=== PATIENT | male | born 1975 | race African-American/Black ===

== ENCOUNTER 2022-10-22 11:39 | Inpatient (IN) | payer OTHER ==
[2022-10-22 12:16] VITALS: BMI 23.6
[2022-10-22] MEDS ORDERED: NALOXONE HCL (KLOXXADO) 8 MG SPRAY NS PRN (15:58)
[2022-10-22] MEDS ORDERED: hydrOXYzine PAMOATE 25 MG CAPSULE (FP) PO PRN (15:58)
[2022-10-22] MEDS ORDERED: LOPERAMIDE HCL 2 MG CAPSULE PO PRN (15:58)
[2022-10-22] MEDS ORDERED: MAGNESIUM HYDROX 2400MG/30ML ORAL SUSPENSION 30 ML CUP PO PRN (15:58)
[2022-10-22] MEDS ORDERED: IBUPROFEN 400 MG TABLET (FP) PO PRN (15:58)
[2022-10-22] MEDS ORDERED: POLYETHYLENE GLYCOL (HEALTHYLAX) 3350 17 GM PACKET PO PRN (15:58)
[2022-10-22] MEDS ORDERED: MAG HYDROX/AL HYDROX/SIMETH 30 ML UNIT-DOSE CUP PO PRN (15:58)
[2022-10-22] MEDS ORDERED: BENZONATATE 200 MG CAPSULE PO PRN (15:58)
[2022-10-22] MEDS ORDERED: COLLOIDAL OATMEAL 1 BAR EACH TP PRN (15:58)
[2022-10-22] MEDS ORDERED: ACETAMINOPHEN 325 MG TABLET (FP) PO PRN (15:58)
[2022-10-22] MEDS ORDERED: BENZOCAINE/MENTHOL (CHLORASEPTIC ) LOZENGE MM PRN (15:58)
[2022-10-22] MEDS ORDERED: AMMONIUM LACTATE 12% LOTION 225 GM BOTTLE TP PRN (15:58)
[2022-10-22] MEDS ORDERED: guaiFENesin 600 MG TABLET.ER (FP) PO PRN (15:58)
[2022-10-22] MEDS ORDERED: IBUPROFEN 600 MG TABLET (FP) PO PRN (15:58)
[2022-10-22] MEDS ORDERED: NALOXONE HCL 0.4 MG/ML VIAL IM PRN (15:58)
[2022-10-22] MEDS ORDERED: TUBERCULIN PPD 5 TU/0.1ML SYRINGE (IN PATIENT USE ONLY) ID ONE (17:30)
[2022-10-22] MEDS ORDERED: TUBERCULIN PPD 5 TU/0.1ML VIAL ID ONE (17:42)
[2022-10-22] MEDS: THIAMINE HCL 100 MG TABLET (FP) PO SCH (21:37)
[2022-10-22] MEDS: MELATONIN 5 MG TABLETS PO SCH (21:37)
[2022-10-22 23:19] LABS: PH,URINE 7.5 (5.0-8.0); URINE APPEARANCE CLOUDY; URINE BILIRUBIN NEGATIVE (NEGATIVE); URINE COLOR YELLOW; URINE GLUCOSE (UA) NEGATIVE (NEGATIVE); URINE KETONE NEGATIVE (NEGATIVE); URINE LEUK ESTERASE NEGATIVE (NEGATIVE); URINE NITRITE NEGATIVE (NEGATIVE); URINE PROTEIN NEGATIVE (NEGATIVE); URINE UROBILINOGEN 0.2 mg/dL (0.2-1.0)
[2022-10-23] MEDS: PRENATAL VITAMINS W/ FOLIC ACID TABLET (FP) PO SCH (10:03)
[2022-10-23] MEDS: AMOX TR/POT CLAV 875MG/125MG TABLETS (FP) PO SCH (17:21)
[2022-10-23] MEDS: BICTEGRAV/EMTRICIT/TENOFOV (BIKTARVY) 50-200-25 MG TABLET PO SCH (17:59)
[2022-10-23] MEDS: THIAMINE HCL 100 MG TABLET (FP) PO SCH (21:22)
[2022-10-23] MEDS: MELATONIN 5 MG TABLETS PO SCH (21:22)
[2022-10-24 09:56] LABS: POTASSIUM 4.7 mmol/L (3.5-5.1)
[2022-10-24 10:02] LABS: HEMATOCRIT 31.6 % (35.4-49); HEMOGLOBIN 10.5 GM/dL (11.7-16.9); MCH 28.2 pg (25.7-33.7); MCHC 33.3 g/dl (32.0-35.9); MEAN CELL VOLUME 84.5 fl (80-96); MEAN PLT VOLUME 8.2 fl (7.5-11.1); PLATELET COUNT 305 10^3/uL (134-434); RBC 3.73 M/mm3 (4.00-5.60); RDW 18.7 % (11.9-15.9); WHITE BLOOD COUNT 4.6 K/mm3 (4.0-10.0)
[2022-10-24 10:06] LABS: CALCIUM 9.2 mg/dL (8.5-10.1)
[2022-10-24 10:07] LABS: BLOOD UREA NITROGEN 8.6 mg/dL (7-18)
[2022-10-24 10:10] LABS: CREATININE 0.9 mg/dL (0.55-1.3)
[2022-10-24 10:12] LABS: BILIRUBIN,TOTAL 0.4 mg/dL (0.2-1); TOT PROT 6.3 g/dl (6.4-8.2)
[2022-10-24] MEDS: PRENATAL VITAMINS W/ FOLIC ACID TABLET (FP) PO SCH (10:45)
[2022-10-24] MEDS: BICTEGRAV/EMTRICIT/TENOFOV (BIKTARVY) 50-200-25 MG TABLET PO SCH (10:45)
[2022-10-24] MEDS: AMOX TR/POT CLAV 875MG/125MG TABLETS (FP) PO SCH (10:45)
[2022-10-24] MEDS: THIAMINE HCL 100 MG TABLET (FP) PO SCH (22:08)
[2022-10-24] MEDS: MELATONIN 5 MG TABLETS PO SCH (22:08)
[2022-10-25] MEDS: BICTEGRAV/EMTRICIT/TENOFOV (BIKTARVY) 50-200-25 MG TABLET PO SCH (10:08)
[2022-10-25] MEDS: PRENATAL VITAMINS W/ FOLIC ACID TABLET (FP) PO SCH (10:08)
[2022-10-25] MEDS: AMOX TR/POT CLAV 875MG/125MG TABLETS (FP) PO SCH (10:08)
[2022-10-25] MEDS: MELATONIN 5 MG TABLETS PO SCH (21:40)
[2022-10-25] MEDS: THIAMINE HCL 100 MG TABLET (FP) PO SCH (21:40)
[2022-10-26] MEDS: BICTEGRAV/EMTRICIT/TENOFOV (BIKTARVY) 50-200-25 MG TABLET PO SCH (08:53)
[2022-10-26] MEDS: FERROUS SO4 325 MG TABLET (FP) PO SCH (10:01)
[2022-10-26] MEDS: PRENATAL VITAMINS W/ FOLIC ACID TABLET (FP) PO SCH (10:01)
[2022-10-26] MEDS: AMOX TR/POT CLAV 875MG/125MG TABLETS (FP) PO SCH (10:01)
[2022-10-26] MEDS: THIAMINE HCL 100 MG TABLET (FP) PO SCH (21:27)
[2022-10-26] MEDS: MELATONIN 5 MG TABLETS PO SCH (21:27)
[2022-10-27] MEDS: BICTEGRAV/EMTRICIT/TENOFOV (BIKTARVY) 50-200-25 MG TABLET PO SCH (07:05)
[2022-10-27] MEDS: AMOX TR/POT CLAV 875MG/125MG TABLETS (FP) PO SCH (09:54)
[2022-10-27] MEDS: PRENATAL VITAMINS W/ FOLIC ACID TABLET (FP) PO SCH (09:54)
[2022-10-27] MEDS: FERROUS SO4 325 MG TABLET (FP) PO SCH (09:54)
[2022-10-27] MEDS: THIAMINE HCL 100 MG TABLET (FP) PO SCH (21:15)
[2022-10-27] MEDS: MELATONIN 5 MG TABLETS PO SCH (21:15)
[2022-10-28] MEDS: BICTEGRAV/EMTRICIT/TENOFOV (BIKTARVY) 50-200-25 MG TABLET PO SCH (07:03)
[2022-10-28] MEDS: AMOX TR/POT CLAV 875MG/125MG TABLETS (FP) PO SCH (10:24)
[2022-10-28] MEDS: FERROUS SO4 325 MG TABLET (FP) PO SCH (10:24)
[2022-10-28] MEDS: PRENATAL VITAMINS W/ FOLIC ACID TABLET (FP) PO SCH (10:24)
[2022-10-28] MEDS: MELATONIN 5 MG TABLETS PO SCH (21:26)
[2022-10-28] MEDS: THIAMINE HCL 100 MG TABLET (FP) PO SCH (21:26)
[2022-10-29] MEDS: BICTEGRAV/EMTRICIT/TENOFOV (BIKTARVY) 50-200-25 MG TABLET PO SCH (07:02)
[2022-10-29] MEDS: PRENATAL VITAMINS W/ FOLIC ACID TABLET (FP) PO SCH (10:01)
[2022-10-29] MEDS: FERROUS SO4 325 MG TABLET (FP) PO SCH (10:01)
[2022-10-29] MEDS: THIAMINE HCL 100 MG TABLET (FP) PO SCH (21:11)
[2022-10-29] MEDS: MELATONIN 5 MG TABLETS PO SCH (21:11)
[2022-10-30] MEDS: BICTEGRAV/EMTRICIT/TENOFOV (BIKTARVY) 50-200-25 MG TABLET PO SCH (07:05)
[2022-10-30] MEDS: FERROUS SO4 325 MG TABLET (FP) PO SCH (09:37)
[2022-10-30] MEDS: PRENATAL VITAMINS W/ FOLIC ACID TABLET (FP) PO SCH (09:37)
[2022-10-30] MEDS: MELATONIN 5 MG TABLETS PO SCH (21:26)
[2022-10-30] MEDS: THIAMINE HCL 100 MG TABLET (FP) PO SCH (21:26)
[2022-10-31] MEDS: BICTEGRAV/EMTRICIT/TENOFOV (BIKTARVY) 50-200-25 MG TABLET PO SCH (07:12)
[2022-10-31] MEDS: PRENATAL VITAMINS W/ FOLIC ACID TABLET (FP) PO SCH (09:54)
[2022-10-31] MEDS: FERROUS SO4 325 MG TABLET (FP) PO SCH (09:55)
[2022-10-31] MEDS: MELATONIN 5 MG TABLETS PO SCH (21:26)
[2022-10-31] MEDS: THIAMINE HCL 100 MG TABLET (FP) PO SCH (21:26)
[2022-11-01] MEDS: BICTEGRAV/EMTRICIT/TENOFOV (BIKTARVY) 50-200-25 MG TABLET PO SCH (07:04)
[2022-11-01] MEDS: PRENATAL VITAMINS W/ FOLIC ACID TABLET (FP) PO SCH (09:49)
[2022-11-01] MEDS: FERROUS SO4 325 MG TABLET (FP) PO SCH (09:50)
[2022-11-01] MEDS: THIAMINE HCL 100 MG TABLET (FP) PO SCH (21:09)
[2022-11-01] MEDS: MELATONIN 5 MG TABLETS PO SCH (21:10)
[2022-11-02] MEDS: BICTEGRAV/EMTRICIT/TENOFOV (BIKTARVY) 50-200-25 MG TABLET PO SCH (07:01)
[2022-11-02] MEDS: PRENATAL VITAMINS W/ FOLIC ACID TABLET (FP) PO SCH (10:55)
[2022-11-02] MEDS: FERROUS SO4 325 MG TABLET (FP) PO SCH (10:55)
[2022-11-02] MEDS: THIAMINE HCL 100 MG TABLET (FP) PO SCH (21:17)
[2022-11-02] MEDS: MELATONIN 5 MG TABLETS PO SCH (21:17)
[2022-11-02] MEDS: PRAZOSIN HCL 1 MG CAPSULE PO SCH (21:18)
[2022-11-03] MEDS: BICTEGRAV/EMTRICIT/TENOFOV (BIKTARVY) 50-200-25 MG TABLET PO SCH (07:07)
[2022-11-03] MEDS ORDERED: AZITHROMYCIN 250 MG TABLET PO ONE (09:25)
[2022-11-03] MEDS ORDERED: SODIUM CHLORIDE NASAL SPRAY 44 ML BOTTLE NS PRN (09:27)
[2022-11-03] MEDS ORDERED: guaiFENesin 600 MG TABLET.ER (FP) PO PRN (09:27)
[2022-11-03] MEDS: FERROUS SO4 325 MG TABLET (FP) PO SCH (09:44)
[2022-11-03] MEDS: PRENATAL VITAMINS W/ FOLIC ACID TABLET (FP) PO SCH (09:44)
[2022-11-03] MEDS: MELATONIN 5 MG TABLETS PO SCH (21:19)
[2022-11-03] MEDS: THIAMINE HCL 100 MG TABLET (FP) PO SCH (21:19)
[2022-11-03] MEDS: PRAZOSIN HCL 1 MG CAPSULE PO SCH (21:19)
[2022-11-04] MEDS: BICTEGRAV/EMTRICIT/TENOFOV (BIKTARVY) 50-200-25 MG TABLET PO SCH (07:29)
[2022-11-04] MEDS: PRENATAL VITAMINS W/ FOLIC ACID TABLET (FP) PO SCH (10:28)
[2022-11-04] MEDS: FERROUS SO4 325 MG TABLET (FP) PO SCH (10:29)
[2022-11-04] MEDS: AZITHROMYCIN 250 MG TABLET PO SCH (10:29)
[2022-11-04 11:30] LABS: BASO % 1.1 % (0-2.0); EOS % 6.4 % (0-4.5); HEMATOCRIT 36.2 % (35.4-49); LYMPH % 37.6 % (8-40); MCH 27.6 pg (25.7-33.7); MCHC 33.3 g/dl (32.0-35.9); MEAN CELL VOLUME 82.9 fl (80-96); MEAN PLT VOLUME 8.8 fl (7.5-11.1); MONO % 10.7 % (3.8-10.2); NEUT % 44.2 % (42.8-82.8); PLATELET COUNT 246 10^3/uL (134-434); RBC 4.37 M/mm3 (4.00-5.60); RDW 17.7 % (11.9-15.9); WHITE BLOOD COUNT 6.5 K/mm3 (4.0-10.0)
[2022-11-04 11:34] LABS: POTASSIUM 4.3 mmol/L (3.5-5.1)
[2022-11-04 11:42] LABS: ALBUMIN 3.5 g/dl (3.4-5.0); BLOOD UREA NITROGEN 12.9 mg/dL (7-18); CALCIUM 9.6 mg/dL (8.5-10.1)
[2022-11-04 11:46] LABS: TOT PROT 7.3 g/dl (6.4-8.2)
[2022-11-04 11:47] LABS: BILIRUBIN,TOTAL 0.4 mg/dL (0.2-1)
[2022-11-04] MEDS: THIAMINE HCL 100 MG TABLET (FP) PO SCH (21:21)
[2022-11-04] MEDS: MELATONIN 5 MG TABLETS PO SCH (21:21)
[2022-11-04] MEDS: PRAZOSIN HCL 1 MG CAPSULE PO SCH (21:22)
[2022-11-04 22:30] VITALS: PULSE 99
[2022-11-05 06:54] VITALS: BP 120/76; RESP 20; TEMP 97.7
[2022-11-05] MEDS: BICTEGRAV/EMTRICIT/TENOFOV (BIKTARVY) 50-200-25 MG TABLET PO SCH (07:11)
[2022-11-05] MEDS: FERROUS SO4 325 MG TABLET (FP) PO SCH (10:03)
[2022-11-05] MEDS: PRENATAL VITAMINS W/ FOLIC ACID TABLET (FP) PO SCH (10:03)
[2022-11-05] MEDS: AZITHROMYCIN 250 MG TABLET PO SCH (10:03)
== END 2022-11-05 10:50 | disposition home or self-care (01) | DRG 772 ==
LOC: YASAS 11:39 → Y3W 15:34
PROVIDERS: ADMIT Allergy & Immunology; ATTEND Surgery
PROC: HZ42ZZZ Group Counseling for Substance Abuse Treatment, Cognitive-Behavioral (ICD-10-PCS; principal; 2022-10-22)
DX: F15.20 Other stimulant dependence, uncomplicated (principal); F10.20 Alcohol dependence, uncomplicated; F12.20 Cannabis dependence, uncomplicated; B20 Human immunodeficiency virus [HIV] disease; D64.9 Anemia, unspecified; J02.9 Acute pharyngitis, unspecified; R05.9 Cough, unspecified; R76.8 Other specified abnormal immunological findings in serum; Z62.810 Personal history of physical and sexual abuse in childhood; Z79.899 Other long term (current) drug therapy
CPT/HCPCS: 36415; 80053; 81003; 82962; 83036; 85025; 85027; 86593; 86780; C9803-CS; U0003; U0005